=== PATIENT | male | born 2000 | race American Indian/Alaskan Native ===

== ENCOUNTER 2019-08-28 22:06 | Emergency (ER) | payer SELFPAY ==
[2019-08-28 22:14] VITALS: BP 118/70
[2019-08-28] MEDS ORDERED: DELTASONE PO ONE (22:57)
[2019-08-28] MEDS ORDERED: DUONEB *Not for PRN Use IH ONE (22:57)
--- NOTE | 2019-08-28 23:03 | Emergency Department Report ---
HPI - General Chief Complaint: Dyspnea/Respdistress Time Seen by Provider: 08/28/19 22:51 - HPI HPI: 19-year-old Rin male presents to the emergency department with complaint of a 2 day history of a sore throat, wheezing with chest tightness, mi xed dry and productive cough. Patient has a history of asthma. He does not have any inhaler or nebulizer treatment and has not taken anything for her symptoms prior to presentation. No recent travel or sick contacts at home. Denies any illicit drug use. ED Past Medical Hx - Past Medical History Hx Asthma: Yes - Surgical History Past Surgical History?: No - Social History Smoking Status: Current Every Day Smoker Substance Use Type: None - Medications Home Medications: Home Medications Medication Instructions Recorded Confirmed Last Taken Type ALBUTEROL Inhaler (OR & NICU) 2 puff IH QID PRN #1 inhalation 08/29/19 Unknown Rx [ProAir HFA Inhaler] predniSONE [Deltasone] 20 mg PO QDAY #5 tab 08/29/19 Unknown Rx ED Review of Systems ROS: Stated complaint: ASTHMA/COUGH Other details as noted in HPI Comment: All other systems reviewed and negative Constitutional: denies: chills, fever ENT: throat pain. denies: ear pain Respiratory: cough, wheezing Cardiovascular: denies: palpitations, edema Gastrointestinal: denies: abdominal pain, vomiting Musculoskeletal: denies: back pain, arthralgia Neurological: denies: headache, weakness Physical Exam - Physical Exam Vital Signs: Vital Signs 08/28/19 22:09 Temperature 99.6 F Pulse Rate 86 Blood Pressure 118/70 O2 Sat by Pulse 96 Oximetry Physical Exam: GENERAL: The patient is well-developed well-nourished. HENT: Normocephalic. Atraumatic. Patient has moist mucous membranes. Oropharynx is clear without tonsillar hypertrophy, erythema or exudates. EYES: Extraocular motions are intact. NECK: Supple. Trachea is midline. CHEST/LUNGS: Mild wheezing throughout the chest. No tachypnea or accessory muscle use. There is no respiratory distress noted. HEART/CARDIOVASCULAR: Regular. There is no tachycardia. There is no murmur. ABDOMEN: Abdomen is soft, nontender. Patient has normal bowel sounds. There is no abdominal distention. SKIN: Skin is warm and dry. NEURO: The patient is awake, alert, and oriented. The patient is cooperative. The patient has no focal neurologic deficits. Normal speech. MUSCULOSKELETAL: There is no tenderness or deformity. There is no evidence of acute injury. ED Course Vital Signs 08/28/19 22:09 Temperature 99.6 F Pulse Rate 86 Blood Pressure 118/70 O2 Sat by Pulse 96 Oximetry ED Medical Decision Making - EKG Data -: EKG Interpreted by Me EKG shows normal: sinus rhythm, axis, intervals, QRS complexes, ST-T waves Rate: normal - EKG Data When compared to previous EKG there are: previous EKG unavailable Interpretation: normal EKG - Radiology Data Radiology results: image reviewed interpreted by me: Chest x-ray does not show any acute process. There are no pleural effusions, obvious pneumonia and there is no pneumothorax. - Medical Decision Making Patient presents to the emergency department with the complaint of some wheezing, coughing, chest tightness and a sore throat. He has some mild bronchospasm but there are no signs of any respiratory distress. He was given a DuoNeb breathing treatment and given a dose of prednisone. Upon reevaluation the symptoms have greatly improved and there is only some mild expiratory wheezing left. Chest x-ray did not show any pneumonia, pleural effusions, pne umothorax, focal consolidation, or any other acute process. Patient's throat appears unremarkable on examination and was negative for rapid strep test. He'll be discharged home with a albuterol inhaler, a course of steroids, and referrals for primary care. He will return to the ER with any worsening of his symptoms or any acute distress. - Differential Diagnosis asthma, bronchitis, pneumonia, strep pharyngitis, viral pharyngitis Critical Care Time: No Critical care attestation.: If time is entered above; I have spent that time in minutes in the direct care of this critically ill patient, excluding procedure time. ED Disposition Clinical Impression: Asthma exacerbation Qualifiers: Asthma severity: unspecified severity Asthma persistence: unspecified Qualified Code(s): J45.901 - Unspecified asthma with (acute) exacerbation Pharyngitis Qualifiers: Pharyngitis/tonsillitis etiology: unspecified etiology Qualified Code(s): J02.9 - Acute pharyngitis, unspecified Disposition: - TO HOME OR SELFCARE Is pt being admited?: No Condition: Stable Instructions: Asthma (ED) Additional Instructions: Please follow-up with a primary care physician in the next few days. Return to the emergency Department with any worsening of your symptoms or any acute distress. Prescriptions: predniSONE [Deltasone] 20 mg PO QDAY #5 tab ALBUTEROL Inhaler (OR & NICU) [ProAir HFA Inhaler] 2 puff IH QID PRN #1 inhalation PRN Reason: Shortness Of Breath Referrals: MAXIMINO MUNOZ MD [Staff Physician] - 2-3 Days [facility] [Outside] - 2-3 Days Time of Disposition: 01:02
--- NOTE | 2019-08-28 23:33 | XRay Report ---
CHEST 2 VIEWS INDICATION / CLINICAL INFORMATION: cough. COMPARISON: None available. FINDINGS: SUPPORT DEVICES: None. HEART / MEDIASTINUM: No significant abnormality. LUNGS / PLEURA: No significant pulmonary or pleural abnormality. No pneumothorax. ADDITIONAL FINDINGS: No significant additional findings. IMPRESSION: 1. No acute findings. Signer Name: Vivek Garcia MD Signed: 08/28/2019 11:28 PM Workstation Name: [id number]
== END 2019-08-29 03:36 | disposition home or self-care (01) ==
LOC: ED 22:06
DX: J45.901 Unspecified asthma with (acute) exacerbation (principal); F17.200 Nicotine dependence, unspecified, uncomplicated; Z79.899 Other long term (current) drug therapy
CPT/HCPCS: 71046; 87116; 87430; 93005; 93010; 94640; 99284; J7512; 94644

== ENCOUNTER 2021-02-19 21:34 | Emergency (ER) | payer SELFPAY ==
[2021-02-19 22:06] VITALS: BP 154/74
--- NOTE | 2021-02-19 22:15 | Emergency Department Report ---
Chief Complaint: Upper Respiratory Infection Stated Complaint: CHEST PAINS Time Seen by Provider: 02/19/21 22:06 - HPI History of Present Illness: 20-year-old -Danish male presents to the emergency room for chest pain when he coughs. Patient does have a history of asthma but has not been using his inhaler. Patient denies any fever chills no nausea no vomiting no shortness of breath. States he has to keep clearing his voice. - Exam Vital Signs: Vital Signs 02/19/21 22:04 Temperature 98.2 F Pulse Rate 88 Respiratory 18 Rate Blood Pressure 154/74 O2 Sat by Pulse 100 Oximetry MSE screening note: Focused history and physical exam performed. Due to findings the following was ordered: 20-year-old -Danish male presents to the emergency room for chest pain when he coughs. Patient does have a history of asthma but has not been using his inhaler. Patient denies any fever chills no nausea no vomiting no shortness of breath. States he has to keep clearing his voice. ED Disposition for MSE Clinical Impression: Allergic rhinitis Qualifiers: Allergic rhinitis trigger: pollen Allergic rhinitis seasonality: unspecified Qualified Code(s): J30.1 - Allergic rhinitis due to pollen Disposition: MED SCREENING EXAM-LEFT Is pt being admited?: No Does the pt Need Aspirin: No Condition: Stable Instructions: Allergic Rhinitis, Adult, Takl-jq-Wiqn Additional Instructions: Recommend idul-hdr-[id number] Zyrtec's Claritin or Bere. Tylenol or ibuprofen as needed for pain. Increase your fluid intake. Can also use uusq-gnc-[id number] Flonase which is medication that you have sprained your nose once a day. Follow-up with your primary care provider. Referrals: [facility] [Provider Group] - 3-5 Days
== END 2021-02-19 22:40 | disposition left against medical advice (07) ==
LOC: ED 21:34
DX: R07.9 Chest pain, unspecified (principal); Z53.21 Procedure and treatment not carried out due to patient leaving prior to being seen by health care provider

== ENCOUNTER 2022-05-19 13:49 | Emergency (ER) | payer SELFPAY ==
[2022-05-19 14:07] VITALS: BP 122/83
[2022-05-19] MEDS ORDERED: ACETAMINOPHEN 500 MG TAB PO ONE (15:33)
[2022-05-19] MEDS ORDERED: TETANUS,DIPH,PERTUSS(ACELL) VACCINE 0.5 ML SYRINGE IM ONE (15:33)
[2022-05-19] MEDS ORDERED: LIDOCAINE-MPF (1%) 10 MG/1 ML VIAL 5 ML INFILTRATI ONE (15:33)
[2022-05-19] MEDS ORDERED: IBUPROFEN 600 MG TAB PO ONE (15:33)
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
== END 2022-05-19 19:00 | disposition home or self-care (01) ==
LOC: ED 13:49
DX: S01.312A Laceration without foreign body of left ear, initial encounter (principal); S10.93XA Contusion of unspecified part of neck, initial encounter; W19.XXXA Unspecified fall, initial encounter; Y93.89 Activity, other specified; Y92.89 Other specified places as the place of occurrence of the external cause; Y99.8 Other external cause status; J45.909 Unspecified asthma, uncomplicated; F17.200 Nicotine dependence, unspecified, uncomplicated; Z79.899 Other long term (current) drug therapy
CPT/HCPCS: 12013; 70450; 70486; 90471; 90715; 99283; J3490